=== PATIENT | male | born 1960 | race African-American/Black ===

== ENCOUNTER 2022-10-12 11:14 | Emergency (ER) | payer OTHER, SELFPAY ==
--- NOTE | ~2022-10-12 | XR_ITS ---
EXAMINATION: XR HAND, RIGHT CLINICAL INFORMATION: Pain after injury COMPARISON: None TECHNIQUE: PA, lateral, and oblique views of the right hand. FINDINGS: Visualized portion of the distal radius and ulna demonstrate no fracture. Carpal rows are maintained. No carpal bone fracture. No metacarpal or phalangeal fracture. No focal soft tissue swelling. XR/XR hand RT 2V IMPRESSION: Unremarkable radiographs of the right hand.
--- NOTE | ~2022-10-12 | US_ITS ---
EXAMINATION: US VENOUS ULTRASOUND WITH DOPPLER LOWER EXTREMITY, RIGHT CLINICAL INFORMATION: Swelling and pain COMPARISON: None TECHNIQUE: Ultrasound of the deep veins is performed from the hip to the calf with compression sonography and color and pulse Doppler assessment. Spectral analysis with color-flow imaging is performed. FINDINGS: There is normal venous compression and respiratory variation and augmented flow. The visualized common femoral vein, superficial femoral vein, profunda femoral vein, popliteal vein, and the trifurcation region shows no evidence of deep venous thrombosis. There is no significant popliteal fossa cyst. If the patient's symptoms persist, followup ultrasound in 5 days 7 days might be of value to exclude proximal propagation from a non-visualized calf vein. US/US venous duplex LE RT IMPRESSION: No DVT demonstrated in the left lower extremity.
[2022-10-12 11:49] VITALS: BP 149/92; PULSE 82; RESP 18; TEMP 35.6; O2SAT 99; BMI 37.9
--- NOTE | 2022-10-12 11:49 | ED_ITS ---
HPI - General Adult General Chief complaint: General Medical <Charleen Perez CNP - Last Filed: 10/12/22 12:02> Stated complaint: ear pain, smashed thumb in car door <Charleen Perez CNP - Last Filed: 10/12/22 12:02> Time Seen by Provider: 10/12/22 13:22 <Charleen Perez CNP - Last Filed: 10/12/22 12:02> Source: patient <JAXON Brandt - Last Filed: 10/12/22 15:02> Mode of arrival: ambulatory <JAXON Brandt - Last Filed: 10/12/22 15:02> Limitations: no limitations <JAXON Brandt - Last Filed: 10/12/22 15:02> History of Present Illness HPI narrative: Pt is a 62 yo male assigned at w/ PMHx significant for diabetes, HTN, hyperlipidemia, and LUBNA on CPAP presenting w/ an approx 2 week hx of right ear pain and buzzing. He reports that he was seen at the onset of symptoms at urgent care at which time he was prescribed a 7 day course of doxycycline that he states he completed on Saturday, 10/08. He states that his symptoms never resolved after completing the course of antibiotics. He states that his primary concern is the continued sensation of buzzing. He endorses dizziness that starts when he gets up out of bed too quickly. He believes that he may have a hx of vertigo for which he is not taking medications. He denies associated headaches or drainage from his ear. He denies any associated symptoms of fever, cough, sore throat, nasal congestion, SOB, chest pain, abd pain, or N/V/D. He is also reporting a 2 week hx of intermittent RLE swelling that started in his upper calf and has since moved into his foot/ankle. He reports that the swelling is worse at the end of the day after being on his feet. He reports that he elevates the leg which decreases the swelling. He denies any changes in skin color or temperature associated with the swelling. He also denies pain in the calf, foot, or ankle. He denies any recent travel, surgery, or trauma. He denies any known hx of blood clots. He is also reporting pain in swelling in his right thumb secondary to closing it in a car door on Saturday. He states that he noted immediate swelling of the thumb following the injury and later developed a bruise under his fingernail. He states that the pain has been constant since onset but he has maintained function of his hand w/ the exception of thumb flexion. <JAXON Brandt - Last Filed: 10/12/22 15:02> Onset (ago): day(s) <JAXON Brandt - Last Filed: 10/12/22 15:02> Location: head <JAXON Brandt - Last Filed: 10/12/22 15:02> Radiation: non-radiation <JAXON Brandt - Last Filed: 10/12/22 15:02> Severity: mild <JAXON Brandt - Last Filed: 10/12/22 15:02> Severity scale (1-10): 1 <JAXON Brandt - Last Filed: 10/12/22 15:02> Quality: dull <JAXON Brandt - Last Filed: 10/12/22 15:02> Pain Consistency: intermittent <JAXON Brandt - Last Filed: 10/12/22 15:02> Relieving factors: none <JAXON Brandt - Last Filed: 10/12/22 15:02> Exacerbating factors: other (moving head quickly ) <JAXON Brandt - Last Filed: 10/12/22 15:02> Associated symptoms: denies other symptoms <JAXON Brandt - Last Filed: 10/12/22 15:02> Treatments prior to arrival: none <JAXON Brandt - Last Filed: 10/12/22 15:02> Related Data Home medications: Previous Rx's Medication Instructions Recorded naproxen 500 mg tablet (Naprosyn) 500 mg PO BID PRN pain #7 tabs 10/12/22 <Charleen Perez CNP - Last Filed: 10/12/22 12:02> Allergies/adverse reactions: Allergies Allergy/AdvReac Type Severity Reaction Status Date / Time Penicillins Allergy Unknown Hives Verified 10/12/22 11:57 <Charleen Perez CNP - Last Filed: 10/12/22 12:02> Review of Systems Constitutional: Constitutional: Reports no additional constitutional complaints, Denies chills, Denies fever(s) and Denies headache(s) <JAXON Brandt - Last Filed: 10/12/22 15:02> Eyes: Eyes: Reports no additional eye complaints, Denies blurry vision and Denies change in vision <JAXON Brandt - Last Filed: 10/12/22 15:02> ENT: Reports dizziness (w/ quick head movements), Denies ear discharge, Reports otalgia, Denies headache(s), Denies hearing loss and Denies sore throat <JAXON Brandt - Last Filed: 10/12/22 15:02> Cardiovascular: Cardiovascular: Reports no additional cardiovascular complaints, Denies chest pain, Denies lightheadedness, Denies Loss of Consciousness and Denies dyspnea <JAXON Brandt - Last Filed: 10/12/22 15:02> Respiratory: Respiratory: Reports no additional respiratory complaints and Denies dyspnea <JAXON Brandt - Last Filed: 10/12/22 15:02> Gastrointestinal: Gastrointestinal: Reports no additional gastrointestinal complaints and Denies abdominal pain <JAXON Brandt - Last Filed: 10/12/22 15:02> Genitourinary: Genitourinary: Reports no additional male genitourinary complaints <JAXON Brandt - Last Filed: 10/12/22 15:02> Musculoskeletal: Musculoskeletal: Reports no additional musculoskeletal complaints, Denies numbness and Denies tingling <JAXON Brandt - Last Filed: 10/12/22 15:02> Comments: right thumb pain, right lower leg swelling <JAXON Brandt - Last Filed: 10/12/22 15:02> Neurologic: Reports dizziness (w/ quick head movements), Denies headache(s), Denies numbness and Denies tingling <JAXON Brandt - Last Filed: 10/12/22 15:02> Psychiatric: Psychiatric: Reports no additional psychiatric complaints <JAXON Brandt - Last Filed: 10/12/22 15:02> Endocrine: Endocrine: Reports no additional endocrine complaints <JAXON Brandt - Last Filed: 10/12/22 15:02> Hematologic/Lymphatic: Hematologic/Lymphatic: Reports no additional hematologic/lymphatic complaints <JAXON Brandt - Last Filed: 15:02> Allergic/Immunologic: Allergic/Immunologic: Reports no additional allergic/immunologic complaints <JAXON Brandt - Last Filed: 10/12/22 15:02> PMFSH Past Medical History Attestation statement: The following information was validated with the patient. <JAXON Brandt - Last Filed: 10/12/22 15:02> Social History Social History: Social History Alcohol intake: current Alcohol intake frequency: holidays/special occasions only Smoked in Last 30 Days: No Use of substances other than those prescribed or required for medical reasons: No Advance Directives: Yes Advance Directives Information Provided: Yes Advance Directives on File: No <Charleen Perez CNP - Last Filed: 10/12/22 12:02> Physical Exam ED Vital Signs: Vital Signs - 24 hr 10/12/22 11:49 10/12/22 14:25 Temperature 96.0 F L 98.5 F Pulse Rate 82 65 Respiratory Rate 18 18 Blood Pressure 149/92 H 141/77 H Pulse Oximetry 99 95 Oxygen Delivery Method Room Air Room Air BMI result Body Mass Index 37.9 <Charleen Perez CNP - Last Filed: 10/12/22 12:02> Vital Signs - 24 hr 10/12/22 11:49 10/12/22 14:25 Temperature 96.0 F L 98.5 F Pulse Rate 82 65 Respiratory Rate 18 18 Blood Pressure 149/92 H 141/77 H Pulse Oximetry 99 95 Oxygen Delivery Method Room Air Room Air BMI result Body Mass Index 37.9 <JAXON Brandt - Last Filed: 10/12/22 15:02> Const General: cooperative, healthy appearing and comfortable <JAXON Brandt - Last Filed: 10/12/22 15:02> Nutritional Appearance: well nourished <JAXON Brandt - Last Filed: 10/12/22 15:02> Orientation/consciousness: patient oriented x3 <JAXON Brandt - Last Filed: 10/12/22 15:02> Limitations: no limitations <Chyna DíazJAXON Last Filed: 10/12/22 15:02> HENMT Head: Yes normal to inspection <Chyna DíazJAXON - Last Filed: 10/12/22 15:02> Ears: hearing grossly normal bilaterally, external ears normal, right TM abnormal (small, hematoma-like lesion noted centrally on TM. otherwise normal), TM normal on the left, EAC's normal, no periauricular adenopathy and TM abnormal <Chyna SteelJAXON winters - Last Filed: 10/12/22 15:02> Eyes General: appearance normal, both eyes and all related structures <Chyna DíazJAXON - Last Filed: 10/12/22 15:02> Neck Neck: Yes normal visual inspection <Chyna DíazJAXON - Last Filed: 10/12/22 15:02> Chest Chest palpation & inspection: normal inspection of the chest <Chyna DíazJAXON Last Filed: 10/12/22 15:02> Resp Effort & Inspection: normal respiratory effort, able to speak in complete sentences and no cough <Chyna SteelJAXON winters Last Filed: 10/12/22 15:02> Auscultation: clear to auscultation bilaterally <Chyna SteelJAXON winters Last Filed: 10/12/22 15:02> Cardio Rate: regular rate <Chyna SteelJAXON winters Last Filed: 10/12/22 15:02> Rhythm: regular rhythm <Chyna SteelJAXON winters Last Filed: 10/12/22 15:02> Heart sounds: S1 normal heart sound present and S2 normal heart sound present <Chyna SteelJAXON winters Last Filed: 10/12/22 15:02> Peripheral pulses: Peripheral pulses 2+ throughout <Chyna SteelJAXON winters Last Filed: 10/12/22 15:02> GI Inspection: Yes normal to inspection <Chyna SteelJAXON winters Last Filed: 10/12/22 15:02> Skin General skin exam: no rashes or lesions noted <Chyna SteelJAXON winters Last Filed: 10/12/22 15:02> Neuro General: patient oriented x3 <Chyna JAXON Díaz Last Filed: 10/12/22 15:02> Extrem Other: right thumb hematoma <JAXON Brandt - Last Filed: 10/12/22 15:02> General: Yes full ROM and Yes capillary refill normal <JAXON Brandt - Last Filed: 10/12/22 15:02> Course Course Course Narrative: RME: Patient is a 62-year-old male presents for multiple complaints. He is expressing ear pain without drainage, states he was seen at urgent care 1 week ago given a prescription for doxycycline x1 week without significant improvement. Awaiting outpatient referral with ENT but the ear is still painful. Second he states that 2 days ago he shut his right thumb in the car door accidentally. He is right-hand dominant. The thumb is painful, and swolle n, made worse with movement. Left ear pain, seen at urgent care 1 week, given script for doxycycline x1 week, pain is no better. Thirty is reporting intermittent pain and swelling to the right lower extremity for the past 3 weeks. Was advised by his primary care provider to come to emergency department to exclude a blood clot. Been trying to elevate leg at night. Swelling does improve with elevation, degree is variable. Denies prior history of DVT/PE. No anticoagulants. Plan: Labs, Hand XR, venous US RLE, urinalysis <Charleen Perez CNP - Last Filed: 10/12/22 12:02> Medications Administered Discontinued Medications Generic Name Dose Route Start Last Admin Trade Name Freq PRN Reason Stop Dose Admin Hydrocodone Bitart/Acetaminophen 1 tab 10/12/22 14:00 10/12/22 14:27 Hydrocodone Bit/Acetam 5/325 Tablet PO 10/12/22 14:01 1 tab ONCE ONE Administration <Charleen Perez CNP - Last Filed: 10/12/22 12:02> Medications Administered Discontinued Medications Generic Name Dose Route Start Last Admin Trade Name Freq PRN Reason Stop Dose Admin Hydrocodone Bitart/Acetaminophen 1 tab 10/12/22 14:00 10/12/22 14:27 Hydrocodone Bit/Acetam 5/325 Tablet PO 10/12/22 14:01 1 tab ONCE ONE Administration <JAXON Brandt - Last Filed: 10/12/22 15:02> Medical Decision Making MDM Narrative Medical decision making narrative: Patient is a 62 year old assigned male at with a history of DM, HTN, and HLD presenting to the emergency department today with right ear pain, right thumb pain, and right lower leg swelling. Patient's physical exam showed a small area of redness of the right TM with minimal bruising to the right thumb. Patient's blood work was unremarkable. Patient's right hand x-ray and right lower leg US showed no acute process. I explained my physical exam findings as well as all test results to the patient. I answered all questions asked by the patient. I stressed the importance of the patient taking his medication as prescribed. I stressed the importance of the patient following up with his primary care provider, an ENT, and an orthopedic provider. I stressed the importance of the patient returning to the emergency department immediately if his symptoms were to worsen or if he were to develop any dizziness, shortness of breath, difficulty breathing, chest pain, blurry vision, loss of vision, nausea, vomiting, abdominal pain, fever, chills, back pain, or any other complaints. Patient verbalized agreement and understanding with this treatment plan and discharge. <JAXON Brandt - Last Filed: 10/12/22 15:02> Medical Records Medical records reviewed: Yes I reviewed the patient's medical records. <JAXON Brandt - Last Filed: 10/12/22 15:02> Lab Data Lab results reviewed: Yes I reviewed the patient's lab results. <JAXON Brandt - Last Filed: 10/12/22 15:02> Result diagrams: : 10/12/22 12:05 10/12/22 12:05 <Charleen Perez CNP - Last Filed: 10/12/22 12:02> Labs: Lab Results 10/12/22 10/12/22 10/12/22 Range/Units 12:05 12:05 12:05 WBC 6.9 (4.8-10.8) X10*3/uL RBC 4.67 (4.60-5.80) X10*6/uL Hgb 14.3 (14.0-18.0) g/dl Hct 42.6 (42.0-52.0) % MCV 91.2 (80.0-98.0) fL MCH 30.6 (27.0-33.0) pg MCHC 33.6 (31.0-36.0) g/dl RDW 13.7 (11.0-16.0) % Plt Count 206 (160-400) X10*3/uL MPV 10.4 (9.4-12.4) fL Immature Gran % (Auto) 0.3 (0.0-0.4) % Neut % (Auto) 55.0 (45-73) % Lymph % (Auto) 32.0 (20-40) % [place] % (Auto) 8.9 (2-11) % Eos % (Auto) 2.6 (0-4) % Baso % (Auto) 1.2 (0-2) % Lymph # (Auto) 2.2 (1.2-4.9) X10*3/uL [place] # (Auto) 0.6 (0.1-1.2) X10*3/uL Eos # (Auto) 0.2 (0.0-0.4) X10*3/uL Baso # (Auto) 0.1 (0.0-0.2) X10*3/uL Abs Immat Gran (auto) 0.02 (0.00-0.03) X10*3/uL Absolute Neuts (auto) 3.8 (2.0-8.3) x10*3/uL Absolute Nucleated RBC 0.000 (0.0-0.012) X10*3/uL Nucleated RBC % (auto) 0.0 (0.0-0.2) /100WBC Sodium 138 (135-145) mmol/L Potassium 4.3 (3.3-5.1) mmol/L Chloride 104 (96-108) mmol/L Carbon Dioxide 22 (22-29) mmol/L Anion Gap 16 (12-20) BUN 10 (9-16) mg/dL Creatinine 0.89 (0.5-1.4) mg/dL Estim Creat Clear Calc 98.4 Estimated GFR > 60 Random Glucose 148 H (60-115) mg/dL Calcium 9.3 (8.4-10.2) mg/dL Total Bilirubin 0.4 (0.0-1.0) mg/dL AST 30 (5-37) U/L ALT 33 (0-40) U/L Alkaline Phosphatase 72 (39-117) U/L B-Natriuretic Peptide < 10 (<100) pg/mL Total Protein 7.4 (6.5-8.0) g/dL Albumin 4.6 (3.5-5.0) g/dL Urine Color Urine Appearance Urine pH (5.0-9.0) Ur Specific [place] (1.005-1.025) Urine Protein (Neg-Trace) mg/dL Urine Glucose (UA) (Negative) mg/dL Urine Ketones (Negative) mg/dL Urine Blood (Negative) Urine Nitrite (Negative) Ur Leukocyte Esterase (Negative) Urine RBC (0-2) /HPF Urine WBC (0-5) /HPF Ur Squamous Epith Cells (0-2) /HPF Urine Bacteria (None Seen) Hyaline Casts (0-2) /LPF 10/12/22 Range/Units 12:05 WBC (4.8-10.8) X10*3/uL RBC (4.60-5.80) X10*6/uL Hgb (14.0-18.0) g/dl Hct (42.0-52.0) % MCV (80.0-98.0) fL MCH (27.0-33.0) pg MCHC (31.0-36.0) g/dl RDW (11.0-16.0) % Plt Count (160-400) X10*3/uL MPV (9.4-12.4) fL Immature Gran % (Auto) (0.0-0.4) % Neut % (Auto) (45-73) % Lymph % (Auto) (20-40) % [place] % (Auto) (2-11) % Eos % (Auto) (0-4) % Baso % (Auto) (0-2) % Lymph # (Auto) (1.2-4.9) X10*3/uL [place] # (Auto) (0.1-1.2) X10*3/uL Eos # (Auto) (0.0-0.4) X10*3/uL Baso # (Auto) (0.0-0.2) X10*3/uL Abs Immat Gran (auto) (0.00-0.03) X10*3/uL Absolute Neuts (auto) (2.0-8.3) x10*3/uL Absolute Nucleated RBC (0.0-0.012) X10*3/uL Nucleated RBC % (auto) (0.0-0.2) /100WBC Sodium (135-145) mmol/L Potassium (3.3-5.1) mmol/L Chloride (96-108) mmol/L Carbon Dioxide (22-29) mmol/L Anion Gap (12-20) BUN (9-16) mg/dL Creatinine (0.5-1.4) mg/dL Estim Creat Clear Calc Estimated GFR Random Glucose (60-115) mg/dL Calcium (8.4-10.2) mg/dL Total Bilirubin (0.0-1.0) mg/dL AST (5-37) U/L ALT (0-40) U/L Alkaline Phosphatase (39-117) U/L B-Natriuretic Peptide (<100) pg/mL Total Protein (6.5-8.0) g/dL Albumin (3.5-5.0) g/dL Urine Color Yellow Urine Appearance Clear Urine pH 5.0 (5.0-9.0) Ur Specific [place] >= 1.030 H (1.005-1.025) Urine Protein Negative (Neg-Trace) mg/dL Urine Glucose (UA) >=1000 H (Negative) mg/dL Urine Ketones Trace (Negative) mg/dL Urine Blood Negative (Negative) Urine Nitrite Negative (Negative) Ur Leukocyte Esterase Negative (Negative) Urine RBC 0-2 (0-2) /HPF Urine WBC 0-5 (0-5) /HPF Ur Squamous Epith Cells 0-2 (0-2) /HPF Urine Bacteria None Seen (None Seen) Hyaline Casts 0-2 (0-2) /LPF <Charleen Perez, LIBRARIAN SPECIALIST - Last Filed: 10/12/22 12:02> Lab Results 10/12/22 10/12/22 10/12/22 Range/Units 12:05 12:05 12:05 WBC 6.9 (4.8-10.8) X10*3/uL RBC 4.67 (4.60-5.80) X10*6/uL Hgb 14.3 (14.0-18.0) g/dl Hct 42.6 (42.0-52.0) % MCV 91.2 (80.0-98.0) fL MCH 30.6 (27.0-33.0) pg MCHC 33.6 (31.0-36.0) g/dl RDW 13.7 (11.0-16.0) % Plt Count 206 (160-400) X10*3/uL MPV 10.4 (9.4-12.4) fL Immature Gran % (Auto) 0.3 (0.0-0.4) % Neut % (Auto) 55.0 (45-73) % Lymph % (Auto) 32.0 (20-40) % [place] % (Auto) 8.9 (2-11) % Eos % (Auto) 2.6 (0-4) % Baso % (Auto) 1.2 (0-2) % Lymph # (Auto) 2.2 (1.2-4.9) X10*3/uL [place] # (Auto) 0.6 (0.1-1.2) X10*3/uL Eos # (Auto) 0.2 (0.0-0.4) X10*3/uL Baso # (Auto) 0.1 (0.0-0.2) X10*3/uL Abs Immat Gran (auto) 0.02 (0.00-0.03) X10*3/uL Absolute Neuts (auto) 3.8 (2.0-8.3) x10*3/uL Absolute Nucleated RBC 0.000 (0.0-0.012) X10*3/uL Nucleated RBC % (auto) 0.0 (0.0-0.2) /100WBC Sodium 138 (135-145) mmol/L Potassium 4.3 (3.3-5.1) mmol/L Chloride 104 (96-108) mmol/L Carbon Dioxide 22 (22-29) mmol/L Anion Gap 16 (12-20) BUN 10 (9-16) mg/dL Creatinine 0.89 (0.5-1.4) mg/dL Estim Creat Clear Calc 98.4 Estimated GFR > 60 Random Glucose 148 H (60-115) mg/dL Calcium 9.3 (8.4-10.2) mg/dL Total Bilirubin 0.4 (0.0-1.0) mg/dL AST 30 (5-37) U/L ALT 33 (0-40) U/L Alkaline Phosphatase 72 (39-117) U/L B-Natriuretic Peptide < 10 (<100) pg/mL Total Protein 7.4 (6.5-8.0) g/dL Albumin 4.6 (3.5-5.0) g/dL Urine Color Urine Appearance Urine pH (5.0-9.0) Ur Specific [place] (1.005-1.025) Urine Protein (Neg-Trace) mg/dL Urine Glucose (UA) (Negative) mg/dL Urine Ketones (Negative) mg/dL Urine Blood (Negative) Urine Nitrite (Negative) Ur Leukocyte Esterase (Negative) Urine RBC (0-2) /HPF Urine WBC (0-5) /HPF Ur Squamous Epith Cells (0-2) /HPF Urine Bacteria (None Seen) Hyaline Casts (0-2) /LPF 10/12/22 Range/Units 12:05 WBC (4.8-10.8) X10*3/uL RBC (4.60-5.80) X10*6/uL Hgb (14.0-18.0) g/dl Hct (42.0-52.0) % MCV (80.0-98.0) fL MCH (27.0-33.0) pg MCHC (31.0-36.0) g/dl RDW (11.0-16.0) % Plt Count (160-400) X10*3/uL MPV (9.4-12.4) fL Immature Gran % (Auto) (0.0-0.4) % Neut % (Auto) (45-73) % Lymph % (Auto) (20-40) % [place] % (Auto) (2-11) % Eos % (Auto) (0-4) % Baso % (Auto) (0-2) % Lymph # (Auto) (1.2-4.9) X10*3/uL [place] # (Auto) (0.1-1.2) X10*3/uL Eos # (Auto) (0.0-0.4) X10*3/uL Baso # (Auto) (0.0-0.2) X10*3/uL Abs Immat Gran (auto) (0.00-0.03) X10*3/uL Absolute Neuts (auto) (2.0-8.3) x10*3/uL Absolute Nucleated RBC (0.0-0.012) X10*3/uL Nucleated RBC % (auto) (0.0-0.2) /100WBC Sodium (135-145) mmol/L Potassium (3.3-5.1) mmol/L Chloride (96-108) mmol/L Carbon Dioxide (22-29) mmol/L Anion Gap (12-20) BUN (9-16) mg/dL Creatinine (0.5-1.4) mg/dL Estim Creat Clear Calc Estimated GFR Random Glucose (60-115) mg/dL Calcium (8.4-10.2) mg/dL Total Bilirubin (0.0-1.0) mg/dL AST (5-37) U/L ALT (0-40) U/L Alkaline Phosphatase (39-117) U/L B-Natriuretic Peptide (<100) pg/mL Total Protein (6.5-8.0) g/dL Albumin (3.5-5.0) g/dL Urine Color Yellow Urine Appearance Clear Urine pH 5.0 (5.0-9.0) Ur Specific [place] >= 1.030 H (1.005-1.025) Urine Protein Negative (Neg-Trace) mg/dL Urine Glucose (UA) >=1000 H (Negative) mg/dL Urine Ketones Trace (Negative) mg/dL Urine Blood Negative (Negative) Urine Nitrite Negative (Negative) Ur Leukocyte Esterase Negative (Negative) Urine RBC 0-2 (0-2) /HPF Urine WBC 0-5 (0-5) /HPF Ur Squamous Epith Cells 0-2 (0-2) /HPF Urine Bacteria None Seen (None Seen) Hyaline Casts 0-2 (0-2) /LPF <JAXON Brandt - Last Filed: 10/12/22 15:02> Imaging Data Right hand x-ray: Attestation: I personally reviewed and interpreted this imaging study as follows: <JAXON Brandt - Last Filed: 10/12/22 15:02> My impression: No acute process. <JAXON Brandt - Last Filed: 10/12/22 15:0 2> Radiologist's impression: EXAMINATION: XR HAND, RIGHT CLINICAL INFORMATION: Pain after injury? COMPARISON: None? TECHNIQUE: PA, lateral, and oblique views of the right hand. FINDINGS: Visualized portion of the distal radius and ulna demonstrate no fracture. Carpal rows are maintained. No carpal bone fracture. No metacarpal or phalangeal fracture. No focal soft tissue swelling.? XR/XR hand RT 2V IMPRESSION: Unremarkable radiographs of the right hand. Dictated By: Christian Bright MD Signed By: Electronically signed by Christian Bright MD 10/12/22 1259 <JAXON Brandt - Last Filed: 10/12/22 15:02> Venous US: Attestation: I personally reviewed and interpreted this imaging study as follows: <JAXON Brandt - Last Filed: 10/12/22 15:02> My impression: No acute process. <JAXON Brandt - Last Filed: 10/12/22 15:02> Radiologist's impression: EXAMINATION:? US VENOUS ULTRASOUND WITH DOPPLER LOWER EXTREMITY, RIGHT CLINICAL INFORMATION:? Swelling and pain COMPARISON:? None TECHNIQUE: Ultrasound of the deep veins is performed from the hip to the calf with compression sonography and color and pulse Doppler assessment. Spectral analysis with color-flow imaging is performed. FINDINGS: There is normal venous compression and respiratory variation and augmented flow. The visualized common femoral vein, superficial femoral vein, profunda femoral vein, popliteal vein, and the trifurcation region shows no evidence of deep venous thrombosis. ? There is no significant popliteal fossa cyst. If the patient's symptoms persist, followup ultrasound in 5 days 7 days might be of value to exclude proximal propagation from a non-visualized calf vein. US/US venous duplex LE RT IMPRESSION: No DVT demonstrated in the left lower extremity. Dictated By: Eugene Frederick MD Signed By: Electronically signed by Eugene Frederick MD 10/12/22 1336 <JAXON Brandt - Last Filed: 10/12/22 15:02> Discharge Plan Discharge Clinical Impression: Ear ache, Thumb pain, Leg edema <Charleen Perez CNP - Last Filed: 10/12/22 12:02> Patient Disposition: Home, Self-Care <Charleen Perez CNP - Last Filed: 10/12/22 12:02> Instructions: Earache (ED), Swollen Joint (ED), Edema (ED) <Charleen Perez CNP - Last Filed: 10/12/22 12:02> Additional Instructions: Follow up with your primary care provider, an ENT, and an orthopedic provider. Return to the emergency department immediately if your symptoms worsen or if you develop any dizziness, shortness of breath, difficulty breathing, chest pain, blurry vision, loss of vision, nausea, vomiting, abdominal pain, fever, chills, back pain, or any other complaints. <Charleen Perez CNP - Last Filed: 10/12/22 12:02> Prescriptions: New naproxen [Naprosyn] 500 mg tablet 500 mg PO BID PRN (Reason: pain) Qty: 7 0RF <Charleen Perez CNP - Last Filed: 10/12/22 12:02> Referrals: [facility] [place] (Call to establish and follow up with a primary care provider. If you already have a primary care provider, please follow up with them. ) [facility] [place]Provider Group] (Call to establish and follow up with a primary care provider. If you already have a primary care provider, please follow up with them. ) [facility] [[place] Group] (Call to establish and follow up with a primary care provider. If you already have a primary care provider, please follow up with them. ) [facility] [Provider Group] (Call to establish and follow up with an orthopedic provider. ) [facility] [Physician] - (Call to establish and follow up with an ENT specialist. ) <Charleen Perez CNP - Last Filed: 10/12/22 12:02> Stand Alone Forms: Work/School Release <Charleen Perez CNP - Last Filed: 10/12/22 12:02> Interventions: ED Discharge Assessment Last Done: 10/12/22 14:33 <Charleen Perez CNP - Last Filed: 10/12/22 12:02> Discharge Date/Time: 10/12/22 14:35 <Charleen Perez CNP - Last Filed: 10/12/22 12:02> Print Language: Micronesian <Charleen Perez, LIBRARIAN SPECIALIST - Last Filed: 10/12/22 12:02>
[2022-10-12 12:10] LABS: MANUAL DIFF FLAG NO
[2022-10-12 12:11] LABS: Basophils Absolute Auto 0.1 X10*3/uL (0.0-0.2); Basophils Percent Auto 1.2 % (0-2); Eosinophils Absolute Auto 0.2 X10*3/uL (0.0-0.4); Eosinophils Percent Auto 2.6 % (0-4); Hematocrit 42.6 % (42.0-52.0); Hemoglobin 14.3 g/dl (14.0-18.0); Imm Gran Abs Auto 0.02 X10*3/uL (0.00-0.03); Imm Gran Pct Auto 0.3 % (0.0-0.4); Lymphocytes Absolute Auto 2.2 X10*3/uL (1.2-4.9); Mean Corpuscular HGB Conc 33.6 g/dl (31.0-36.0); Mean Corpuscular Hemoglobin 30.6 pg (27.0-33.0); Mean Corpuscular Volume 91.2 fL (80.0-98.0); Mean Platelet Volume 10.4 fL (9.4-12.4); Monocytes Absolute Auto 0.6 X10*3/uL (0.1-1.2); Monocytes Percent Auto 8.9 % (2-11); Neutrophils Absolute Auto 3.8 x10*3/uL (2.0-8.3); Platelet Count 206 X10*3/uL (160-400); Red Blood Count 4.67 X10*6/uL (4.60-5.80); Red Cell Distribution Width 13.7 % (11.0-16.0); White Blood Count 6.9 X10*3/uL (4.8-10.8)
[2022-10-12 12:12] LABS: Appearance Urine Clear; Color Urine Yellow; Glucose Urine UA >=1000 mg/dL (Negative); Leukocyte Esterase Urine Negative (Negative); Nitrite Urine Negative (Negative); Specific Gravity - Urine >= 1.030 (1.005-1.025); UMIC TRIGGER UACC YES; Urine Blood Negative (Negative); Urine Ketones Trace mg/dL (Negative); Urine Protein Negative (Neg-Trace)
[2022-10-12 12:17] LABS: Bacteria Urine None Seen (None Seen); Hyaline Casts Urine 0-2 /LPF (0-2); RBC Urine 0-2 /HPF (0-2); Squamous Epithelial Cell Urine 0-2 /HPF (0-2); WBC Urine 0-5 /HPF (0-5)
[2022-10-12 12:31] LABS: B Type Natriuretic Peptide < 10 pg/mL (<100)
[2022-10-12 12:33] LABS: Alanine Aminotransferase 33 U/L (0-40); Albumin Level 4.6 g/dL (3.5-5.0); Alkaline Phosphatase 72 U/L (39-117); Anion Gap 16 (12-20); Aspartate Amino Transferase 30 U/L (5-37); Bilirubin Total 0.4 mg/dL (0.0-1.0); Blood Urea Nitrogen 10 mg/dL (9-16); Calcium 9.3 mg/dL (8.4-10.2); Carbon Dioxide 22 mmol/L (22-29); Chloride 104 mmol/L (96-108); Creatinine Clr Calc Pharmacy 98.4; Estimated Glomerular Filt Rate > 60; Glucose Random 148 mg/dL (60-115); Potassium 4.3 mmol/L (3.3-5.1); Sodium 138 mmol/L (135-145); Total Protein 7.4 g/dL (6.5-8.0)
--- NOTE | 2022-10-12 13:45 | PC.NURSE ---
pt is a/o x 4 no sob/selena noted lungs - cta . c/o r ear pain, r thumb swelling and discoloration and r lower leg swelling.
[2022-10-12 14:25] VITALS: BP 141/77; PULSE 65; RESP 18; TEMP 36.9; O2SAT 95
[2022-10-12] MEDS: HYDROcodone Bit/Acetam 5/325 TABLET 1 TAB PO (14:27)
== END 2022-10-12 14:35 | disposition home or self-care (01) ==
PROVIDERS: Nurse Practitioner Family; Emergency Provider Emergency Medicine Emergency Medical Services; PCP Internal Medicine Endocrinology, Diabetes & Metabolism
DX: H92.01 Otalgia, right ear (principal); M79.644 Pain in right finger(s); R60.0 Localized edema; M79.604 Pain in right leg; E11.9 Type 2 diabetes mellitus without complications; I10 Essential (primary) hypertension; E78.5 Hyperlipidemia, unspecified
CPT/HCPCS: 36415; 73120; 80053; 81001; 83880; 85025; 93971; 99284

== ENCOUNTER 2022-10-14 12:33 | Emergency (ER) | payer OTHER, SELFPAY ==
[2022-10-14 14:20] VITALS: BP 147/76; PULSE 61; RESP 17; TEMP 36.6; O2SAT 98; BMI 37.9
--- NOTE | 2022-10-14 15:24 | ED_ITS ---
HPI - Extremity Problem General Chief complaint: Extremity Injury, Upper Stated complaint: R finger infection Time Seen by Provider: 10/14/22 14:25 Source: patient Mode of arrival: ambulatory History of Present Illness HPI Narrative: 62-year-old male with a past medical history of diabetes, HTN, HLD, LUBNA on CPAP, presenting to the ED complaining of painful right thumb s/p jamming in car door 3 days ago. Patient was evaluated in the ED after incident for multiple complaints, x-ray of the hand at that time was unremarkable. Reports continued throbbing pain. Denies fever, chills, numbness/tingling. Denies taking AC MD Complaint: extremity pain Onset (ago): day(s) Related Data Previous Rx's Medication Instructions Recorded naproxen 500 mg tablet (Naprosyn) 500 mg PO BID PRN pain #7 tabs 10/12/22 Allergies Allergy/AdvReac Type Severity Reaction Status Date / Time Penicillins Allergy Unknown Hives Verified 10/12/22 11:57 Review of Systems Review of Systems: Constitutional: No Fever, No Chills ENT/Mouth: No Ear Pain, No Nasal Congestion, No sore throat, No Rhinorrhea, No Swallowing Difficulty Cardiovascular: No Chest Pain, No SOB Respiratory: No Cough, No Sputum, No Wheezing Gastrointestinal: No Nausea, No Vomiting, No Diarrhea, No Constipation, No Abdominal pain Genitourinary: No Dysuria, No Hematuria, No Flank Pain Musculoskeletal: No joint pain, No Myalgias, No Joint Swelling Skin: + Skin Lesions, No rash Neuro: No Weakness, No Numbness, No Paresthesias Yes all other systems are reviewed and are negative Constitutional: Constitutional: Reports as per [facility] Past Medical History Attestation statement: The following information was validated with the patient. Social History Social History Alcohol intake: current Alcohol intake frequency: holidays/special occasions only Advance Directives: No Advance Directives Information Provided: No Physical Exam Vital Signs: Vital Signs: Last Vital Signs Temp 97.8 F 10/14/22 14:20 Pulse 61 10/14/22 14:20 Resp 17 10/14/22 14:20 BP 147/76 H 10/14/22 14:20 Pulse Ox 98 10/14/22 14:20 O2 Del Method 10/14/22 14:20 BMI result Body Mass Index 37.9 Const: General: cooperative, healthy appearing and no acute distress Orientation/consciousness: patient oriented x3 Limitations: no limitations HEENT: Head: Yes normal to inspection and Yes atraumatic Ears: hearing grossly normal bilaterally General nose exam: Normal external nose present Face and sinus: Yes normal facial exam Eyes: General: appearance normal, both eyes and all related structures EOM: EOMs intact bilaterally Neck: Neck: Yes normal visual inspection and Yes no meningeal signs Resp: Effort & Inspection: normal respiratory effort and no respiratory distress Cardio: Rate: regular rate Heart sounds: S1 normal heart sound present and S2 normal heart sound present Peripheral pulses: radial pulses present and ulnar radial pulses present Skin: Rashes: no rashes Wounds: no wounds Neuro: General: patient oriented x3, tone normal and no meningeal signs Gait exam (Neuro): Normal gait present Extrem: Other: + right 1st digit with large notable subungual hematoma/swelling and mild fluctuance. No active bleeding. Neurovascularly intact. Full range of motion intact MDM - Extremity (Nontraumatic) MDM Narrative Medical decision making narrative: 62-year-old male with a past medical history of diabetes, HTN, HLD, LUBNA on CPAP, presenting to the ED complaining of painful right thumb s/p jamming in car door 3 days ago. On exam vital signs stable, NAD, nontoxic appearing physical exam as above with noted large subungual hematoma to right thumb. X-ray from 10/12/2022 unremarkable Will drain hematoma Medical Records Attestation: I reviewed the patient's medical records. Lab Data Attestation: I reviewed the patient's lab results. Procedures Nail Trephination Location (finger): right and thumb Sterile prep: betadine Method of drainage: nail cautery Procedure successful: Yes Patient tolerated procedure: No Complications Discharge Plan Discharge Clinical Impression: Subungual hematoma Patient Disposition: Home, Self-Care Instructions: Subungual Hematoma (ED) Additional Instructions: Your subungual hematoma was drained today in the emergency department. Practice warm soaks at home and continue to milk/massage the area to express blood Take Tylenol /Motrin as needed If area begins look infected, is red, there is pus drainage, you fever, or area becomes swollen again return to the emergency department Prescriptions: No Action naproxen [Naprosyn] 500 mg tablet 500 mg PO BID PRN (Reason: pain) Qty: 7 0RF Referrals: Rajiv Wilks MD [Primary Care Provider] - (as needed)
[2022-10-14] MEDS: Lidocaine HCl 1 % MPF 2 ML VIAL INFILTRATI (15:54)
[2022-10-14] MEDS: oxyCODONE HCl Immed Release 5 MG TABLET PO (15:54)
--- NOTE | 2022-10-14 16:00 | PC.NURSE ---
Patient a/ox4 . VSS . Went over discharge instructions as ordered by provider . patient to follow up with primary care . no questions at this time .
== END 2022-10-14 16:03 | disposition home or self-care (01) ==
PROVIDERS: Emergency Provider Emergency Medicine; PCP Internal Medicine Endocrinology, Diabetes & Metabolism
DX: M79.644 Pain in right finger(s) (principal); I10 Essential (primary) hypertension; G47.33 Obstructive sleep apnea (adult) (pediatric)
CPT/HCPCS: 99284

== ENCOUNTER 2023-03-15 08:44 | Emergency (ER) | payer OTHER, SELFPAY ==
--- NOTE | ~2023-03-15 | XR_ITS ---
Examination: Chest and lumbar spine. Clinical indication: Chest pain and low back pain. COMPARISON: None. TECHNIQUE: 2 view chest. 3 views lumbar spine. FINDINGS: CHEST: The lungs are fairly well-expanded and clear. The heart size and pulmonary vascularity is normal. There is mild dextroscoliosis dorsal spine. No aggressive lytic or sclerotic process seen. LUMBAR SPINE: There is maintained lumbar lordosis. The vertebral heights, alignment and disc heights are normal. No visible acute fracture, dislocation or subluxation seen. XR/XR lumbar spine 2-3V IMPRESSION: 1. Unremarkable chest exam. 2. Mild dextroscoliosis dorsal spine. No visible acute fracture, dislocation or subluxation seen.
--- NOTE | ~2023-03-15 | XR_ITS ---
Examination: Chest and lumbar spine. Clinical indication: Chest pain and low back pain. COMPARISON: None. TECHNIQUE: 2 view chest. 3 views lumbar spine. FINDINGS: CHEST: The lungs are fairly well-expanded and clear. The heart size and pulmonary vascularity is normal. There is mild dextroscoliosis dorsal spine. No aggressive lytic or sclerotic process seen. LUMBAR SPINE: There is maintained lumbar lordosis. The vertebral heights, alignment and disc heights are normal. No visible acute fracture, dislocation or subluxation seen. XR/XR chest 2V IMPRESSION: 1. Unremarkable chest exam. 2. Mild dextroscoliosis dorsal spine. No visible acute fracture, dislocation or subluxation seen.
[2023-03-15 08:55] VITALS: BP 154/81; PULSE 94; RESP 17; TEMP 36.7; O2SAT 96; BMI 38.5
[2023-03-15 09:12] LABS: Appearance Urine Clear; Color Urine Yellow; Glucose Urine UA >=1000 mg/dL (Negative); Leukocyte Esterase Urine Negative (Negative); Nitrite Urine Negative (Negative); Specific Gravity - Urine >= 1.030 (1.005-1.025); UMIC TRIGGER UACC YES; Urine Blood Negative (Negative); Urine Ketones Negative (Negative); Urine Protein Negative (Neg-Trace)
--- NOTE | 2023-03-15 09:13 | ED.GENADULT ---
HPI - General Adult General Chief complaint: General Medical Stated complaint: Lower back/Pain when breathing Time Seen by Provider: 03/15/23 08:59 Source: patient Limitations: no limitations History of Present Illness HPI narrative: 62-year-old male who presents to the ER complaining of lower back pain left greater than right. It also pain with deep inspiration. Patient denies nausea vomiting chest pain shortness of breath. Patient has known underlying history of back issues his fall by [facility]. Patient has had injections in the past with minimal relief. Patient is planning to follow-up with neurosurgeon for possible procedure. Patient is unsure what is MRI in the past x-rays show but believes it was either spinal stenosis or disc herniation versus bulging. Pain is 7/10 increases at times with sitting and movement. Patient denies tobacco history. Symptoms moderate. Related Data Previous Rx's Medication Instructions Recorded naproxen 500 mg tablet (Naprosyn) 500 mg PO BID PRN pain #7 tabs 10/12/22 naproxen 500 mg tablet 500 mg PO BID PRN pain 10 days #20 10/14/22 tabs methocarbamol 750 mg tablet 750 mg PO TID PRN muscle spasm #20 03/15/23 tabs Allergies Allergy/AdvReac Type Severity Reaction Status Date / Time Penicillins Allergy Unknown Hives Verified 10/12/22 11:57 Review of Systems Review of Systems: Constitutional : No Weight loss, No Fever, No Chills, No Night Sweats, No Fatigue, No Malaise ENT/Mouth : No Hearing loss, No Ear Pain, No Nasal Congestion, No Sinus Pain, No Hoarseness, No sore throat, No Rhinorrhea, No Swallowing Difficulty Eyes: No Eye Pain, No Swelling, No Redness, No Foreign Body, No Discharge, No Vision Changes Cardiovascular : No Chest Pain, No SOB, No Dyspnea on Exertion, No Orthopnea, No Edema, No Palpitations, Respiratory : No Cough, No Sputum, No Wheezing, No Smoke Exposure, No Dyspnea, pain with deep inspiration Gastrointestinal : No Nausea, No Vomiting, No Diarrhea, No Constipation, No abdominal Pain, No Hematochezia, No Melena Genitourinary : No urinary symptoms at this time Musculoskeletal : Positive lower back pain radiating and left leg greater than right leg Neuro : No Weakness, No Numbness, No Paresthesias, No Loss of Consciousness, No Dizziness, No Headache Psych : No Anxiety/Panic, No Depression, No SI/HI/AH/VH, No Social Issues, Heme/Lymph: No Bruising, No Bleeding,No Lymphadenopathy Endocrine : No Polyuria, No Polydipsia, No Temperature Intolerance [facility] Past Medical History Attestation statement: The following information was validated with the patient. Social History Social History Alcohol intake: never Advance Directives: No Advance Directives Information Provided: Yes Physical Exam ED Vital Signs: Vital Signs - 24 hr 03/15/23 08:55 Temperature 98.1 F Pulse Rate 94 Respiratory Rate 17 Blood Pressure 154/81 H Pulse Oximetry 96 Oxygen Delivery Method Room Air BMI result Body Mass Index 38.5 vital signs have been reviewed as normal and appeared to be correct. Blood pressure normal. Heart rate normal. Respiration rate normal. Temperature normal. Oxygen saturation normal. Appearance: Alert. Oriented X3. No acute distress. Head: Normal external exam. Normocephalic. Atraumatic. Eyes: PERRLA. EOMI. Conjunctiva and sclera normal. Eyelids normal. ENT: Pharynx normal. Uvula midline. Moist mucous membranes. Neck: Soft full range of motion, no JVD CVS: Heart regular rate and rhythm no murmurs and rubs Respiratory: Breath sounds are clear to auscultation bilaterally. No accessory muscle use noted. Abdomen: Soft nontender no rebound or guarding positive bowel sounds Back: Positive paraspinal muscle tenderness of the lumbar spine no midline tenderness positive straight leg raise on the left. Skin: Skin warm and dry. Normal skin color. Normal skin turgor. No rashes/lesions/lacerations noted. Extremities: No lower extremity edema. Extremities exhibit normal range of motion. Extremities nontender. Neuro: Oriented X 3. No motor deficit. No sensory deficit. Reflexes normal. Course Course Course Narrative: Lumbar strain Spinal stenosis Left leg sciatica Disc herniation Renal calculi less likely Pleurisy Pneumonia Pulmonary embolism less likely 62-year-old male with history of diabetes hypertension hypercholesterolemia on longstanding history of chronic back pain. Presents with left greater than right lower back pain radiating down left legs. No relief with Naprosyn and Motrin at home. Patient also felt like he had some back pain with deep inspiration. Denies shortness of breath fever chills. Vital signs are otherwise stable. O2 sat 96% on room air. Bilateral calf some nontender. LS Spine chest x-ray pending Chest x-ray is negative reviewed with patient. LS spine shows mild dextroscoliosis of the dorsal spine no other acute findings noted. Patient recommended close follow-up with PCP and/or [facility] for possible physical therapy and a repeat outpatient MRI Wells' Criteria for Pulmonary Embolism from [email or web address] on 03/15/2023 All calculations should be rechecked by clinician prior to use RESULT SUMMARY: 0.0 points Low risk group: 1.3% chance of PE in an ED population. Another study assigned scores <=4 as ?PE Unlikely? and had a 3% incidence of PE. INPUTS: Clinical signs and symptoms of DVT ?> 0 = No PE is #1 diagnosis OR equally likely ?> 0 = No Heart rate > 100 ?> 0 = No Immobilization at least 3 days OR surgery in the previous 4 weeks ?> 0 = No Previous, objectively diagnosed PE or DVT ?> 0 = No Hemoptysis ?> 0 = No Malignancy w/ treatment within 6 months or palliative ?> 0 = No Medical Decision Making Lab Data Labs: Lab Results 03/15/23 Range/Units 09:04 Urine Color Yellow Urine Appearance Clear Urine pH 5.0 (5.0-9.0) Ur Specific [place] >= 1.030 H (1.005-1.025) Urine Protein Negative (Neg-Trace) mg/dL Urine Glucose (UA) >=1000 H (Negative) mg/dL Urine Ketones Negative (Negative) mg/dL Urine Blood Negative (Negative) Urine Nitrite Negative (Negative) Ur Leukocyte Esterase Negative (Negative) Urine RBC 0-2 (0-2) /HPF Urine WBC 0-5 (0-5) /HPF Ur Squamous Epith Cells 0-2 (0-2) /HPF Urine Bacteria None Seen (None Seen) Hyaline Casts 0-2 (0-2) /LPF Radiology Impression Radiologist Impression: [address] [address] XRay Report Signed Patient: Guy De Los Santos MR#: [id number] : 1960 Acct:[id number] Age/Sex: 62 / M ADM Date: 03/15/23 Loc: HO.ED Attending Dr: Ordering Physician: Toby Johnson Date of Service: 03/15/23 Procedure(s): XR lumbar spine 2-3V Accession Number(s): [id number] cc: Toby Johnson ~ Examination: Chest and lumbar spine. Clinical indication: Chest pain and low back pain. COMPARISON: None. TECHNIQUE: 2 view chest. 3 views lumbar spine. FINDINGS: CHEST: The lungs are fairly well-expanded and clear. The heart size and pulmonary vascularity is normal. There is mild dextroscoliosis dorsal spine. No aggressive lytic or sclerotic process seen. LUMBAR SPINE: There is maintained lumbar lordosis. The vertebral heights, alignment and disc heights are normal. No visible acute fracture, dislocation or subluxation seen. XR/XR lumbar spine 2-3V IMPRESSION: 1.? Unremarkable chest exam. 2.? Mild dextroscoliosis dorsal spine. No visible acute fracture, dislocation or subluxation seen. ? Dictated By: Eugene Frederick MD Signed By: <Electronically signed by Eugene Frederick MD in OV> 03/15/23 0959 DD/ 0950 TD/TT:? [employer]er: [facility] [place] Discharge Plan Discharge Clinical Impression: Sciatic leg pain Patient Disposition: Home, Self-Care Instructions: Sciatica (ED) Additional Instructions: Medication as directed X-ray view chest is negative Lumbar x-ray shows no acute findings Close follow-up with PCP and or prior spine sports for further evaluation workup Return if symptoms worsen Prescriptions: New methocarbamol 750 mg tablet 750 mg PO TID PRN (Reason: muscle spasm) Qty: 20 0RF No Action naproxen [Naprosyn] 500 mg tablet 500 mg PO BID PRN (Reason: pain) Qty: 7 0RF naproxen 500 mg tablet 500 mg PO BID PRN (Reason: pain) 10 Days Qty: 20 0RF
[2023-03-15 09:17] LABS: Bacteria Urine None Seen (None Seen); Hyaline Casts Urine 0-2 /LPF (0-2); RBC Urine 0-2 /HPF (0-2); Squamous Epithelial Cell Urine 0-2 /HPF (0-2); WBC Urine 0-5 /HPF (0-5)
--- NOTE | 2023-03-15 10:26 | PC.NURSE ---
low back pain, ua clean, steady gait, nad
== END 2023-03-15 10:26 | disposition home or self-care (01) ==
PROVIDERS: Physician Assistant; Emergency Provider Emergency Medicine; PCP Internal Medicine Endocrinology, Diabetes & Metabolism
DX: M54.42 Lumbago with sciatica, left side (principal)
CPT/HCPCS: 71046; 72100; 81001; 99282; 99283

== ENCOUNTER 2023-12-11 02:40 | Emergency (ER) | payer OTHER, SELFPAY ==
--- NOTE | ~2023-12-11 | XR_ITS ---
EXAMINATION: XR LUMBOSACRAL SPINE CLINICAL INFORMATION: Pain COMPARISON: 03/15/2023 TECHNIQUE: Three views of the lumbosacral spine. FINDINGS: There is anatomic alignment of the lumbar vertebral bodies and posterior elements. Vertebral body heights are maintained. Minimal multilevel endplate osteophytes noted. There is suspected facet arthropathy of the lower lumbar spine. No acute fracture is seen. Sacroiliac joints appear intact. XR/XR lumbar spine 2-3V IMPRESSION: No acute findings identified. Chronic changes as noted above.
[2023-12-11 02:49] VITALS: BP 166/93; PULSE 91; RESP 16; TEMP 36.7; O2SAT 98; BMI 37.8
[2023-12-11 07:28] VITALS: BP 148/83; PULSE 89; RESP 16; TEMP 37.2; O2SAT 97
--- NOTE | 2023-12-11 07:36 | ED_ITS ---
HPI - Back Pain/Injury General Chief Complaint: Back Pain/Injury Stated Complaint: reaction to shot? Time Seen by Provider: 12/11/23 07:08 Source: patient Mode of arrival: ambulatory Limitations: no limitations History of Present Illness HPI Narrative: patient had L5S1 injected on Saturday since then he has had worsening radiculopathy down his left leg. No fever, no rash MD elicited complaint: back pain Pertinent past history: prior back pain Onset (ago): week(s) Timing: constant Severity: moderate Related Data Previous Rx's Medication Instructions Recorded naproxen 500 mg tablet (Naprosyn) 500 mg PO BID PRN pain #7 tabs 10/12/22 naproxen 500 mg tablet 500 mg PO BID PRN pain 10 days #20 10/14/22 tabs methocarbamol 750 mg tablet 750 mg PO TID PRN muscle spasm #20 03/15/23 tabs gabapentin 300 mg capsule 300 mg PO TID #60 caps 12/11/23 Allergies Allergy/AdvReac Type Severity Reaction Status Date / Time Penicillins Allergy Unknown Hives Verified 12/11/23 02:52 Review of Systems Review of Systems: Yes all other systems are reviewed and are negative Neurologic: Denies Sensory deficit (Neuro) [facility] Social History Social History Alcohol intake: never Advance Directives: No Advance Directives Information Provided: No Physical Exam Vital Signs: Vital Signs: Last Vital Signs Temp 98.9 F 12/11/23 07:28 Pulse 91 12/11/23 10:42 Resp 17 12/11/23 10:42 BP 143/73 H 12/11/23 10:42 Pulse Ox 98 12/11/23 10:42 O2 Del Method Room Air 12/11/23 10:42 BMI result Body Mass Index 37.8 Const: General: healthy appearing Nutritional Appearance: obese Orientation/consciousness: oriented to person and patient oriented x3 Limitations: no limitations HEENT: Head: Yes normal to inspection Ears: external ears normal General nose exam: Normal external nose present Mouth: Normal oral and palatal mucosa present and oropharynx normal Throat: Yes posterior oropharynx normal Eyes: General: appearance normal, both eyes and all related structures Neck: Other: supple Neck: Yes normal visual inspection Chest: Chest palpation & inspection: normal inspection of the chest Resp: Auscultation: clear to auscultation bilaterally Cardio: Jugular venous distension: no JVD Rate: regular rate Rhythm: regular rhythm Heart sounds: S1 normal heart sound present and S2 normal heart sound present GI: Inspection: Yes normal to inspection Palpation (GI): Soft to palpation, nontender and No hepatosplenomegaly present Auscultation: normal bowel sounds Back/Spine/Pelvis: Other: left SI and left sciatic notch pain Skin: General skin exam: no rashes or lesions noted Neuro: General: oriented to person and patient oriented x3 Cranial nerves: Yes CN's II-XII intact bilaterally Motor exam (neuro): 5/5 motor strength present throughout Sensory Exam: No Sensory deficit (Neuro) Extrem: General: Yes normal to inspection Psych: Appearance: grossly normal Course Reevaluation(s) Reevaluation #1: patient feeling slightly better will dc home Time: 10:53 Medications Administered Discontinued Medications Generic Name Dose Route Start Last Admin Trade Name Freq PRN Reason Stop Dose Admin Cyclobenzaprine HCl 10 mg 12/11/23 07:37 12/11/23 07:46 Cyclobenzaprine Hcl 10 Mg Tablet PO 12/11/23 07:38 10 mg ONCE ONE Administration Gabapentin 300 mg 12/11/23 07:37 12/11/23 07:46 Gabapentin 300 Mg Capsule PO 12/11/23 07:38 300 mg ONCE ONE Administration Ketorolac Tromethamine 60 mg 12/11/23 07:37 12/11/23 07:46 Ketorolac Tromethamine 60 Mg/2 Ml Vial IM 12/11/23 07:38 60 mg ONCE ONE Administration Medical Decision Making Differential Diagnosis Differential Diagnoses: The differential diagnosis associated with the presentation includes (sciatica, radiculopathy, UTI were all considered) Admission/Observation Consideration of admission/observation: Escalation of care including admission/observation considered (upon arrival admission was considered) Lab Data Labs: Lab Results 12/11/23 Range/Units 07:30 Urine Color Yellow Urine Appearance Clear Urine pH 5.5 (5.0-9.0) Ur Specific [place] 1.025 (1.005-1.025) Urine Protein Negative (Neg-Trace) mg/dL Urine Glucose (UA) >=1000 H (Negative) mg/dL Urine Ketones 15 (Negative) mg/dL Urine Blood Negative (Negative) Urine Nitrite Negative (Negative) Ur Leukocyte Esterase Negative (Negative) Urine RBC 0-2 (0-2) /HPF Urine WBC 0-5 (0-5) /HPF Ur Squamous Epith Cells 0-2 (0-2) /HPF Urine Bacteria None Seen (None Seen) Hyaline Casts 0-2 (0-2) /LPF Independent Interpretation I performed an independent interpretation of an: Plain X-Ray (minimal djd) Tests considered The following testing was considered but not selected: MRI of spine was considered but patient is nonfocal Prescription Management I considered prescription management with: Pain Medication (narcotics will not be added for this problem) Chronic Conditions Patient?s care impacted by: Hypertension Discharge Plan Discharge Clinical Impression: Lumbar radiculopathy, Sciatica Patient Disposition: Home, Self-Care Instructions: Sciatica (ED), Lumbar Radiculopathy (ED) Additional Instructions: must call your pain specialist today Prescriptions: New gabapentin 300 mg capsule 300 mg PO TID Qty: 60 0RF No Action naproxen [Naprosyn] 500 mg tablet 500 mg PO BID PRN (Reason: pain) Qty: 7 0RF naproxen 500 mg tablet 500 mg PO BID PRN (Reason: pain) 10 Days Qty: 20 0RF methocarbamol 750 mg tablet 750 mg PO TID PRN (Reason: muscle spasm) Qty: 20 0RF Referrals: Physician,Unknown J [Primary Care Provider] - 2 days
[2023-12-11 07:42] LABS: Appearance Urine Clear; Color Urine Yellow; Glucose Urine UA >=1000 mg/dL (Negative); Leukocyte Esterase Urine Negative (Negative); Nitrite Urine Negative (Negative); PH 5.5 (5.0-9.0); Specific Gravity - Urine 1.025 (1.005-1.025); UMIC TRIGGER UACC YES; Urine Blood Negative (Negative); Urine Ketones 15 mg/dL (Negative); Urine Protein Negative (Neg-Trace)
[2023-12-11] MEDS: Ketorolac Tromethamine 60 MG/2 ML VIAL IM (07:46)
[2023-12-11] MEDS: Gabapentin 300 MG CAPSULE PO (07:46)
[2023-12-11] MEDS: Cyclobenzaprine HCl 10 MG TABLET PO (07:46)
[2023-12-11 07:47] LABS: Bacteria Urine None Seen (None Seen); Hyaline Casts Urine 0-2 /LPF (0-2); RBC Urine 0-2 /HPF (0-2); Squamous Epithelial Cell Urine 0-2 /HPF (0-2); WBC Urine 0-5 /HPF (0-5)
--- NOTE | 2023-12-11 07:47 | PC.NURSE ---
medication administered per provider order. will reassess.
--- NOTE | 2023-12-11 09:53 | PC.NURSE ---
pt verbalizing pain level decreased post medication administration but still verbalizing pain is a 10/10 at this time. pt still displays as uncomfortable/cannot find a comfortable position. respirations remain even and unlabored. call reyes placed within reach.
[2023-12-11 10:42] VITALS: BP 143/73; PULSE 91; RESP 17; O2SAT 98
== END 2023-12-11 11:17 | disposition home or self-care (01) ==
PROVIDERS: Emergency Provider Emergency Medicine
DX: M54.16 Radiculopathy, lumbar region (principal); M54.42 Lumbago with sciatica, left side; M54.41 Lumbago with sciatica, right side
CPT/HCPCS: 72100; 81001; 96372; 99284; J1885